=== PATIENT | male | born 1945 | race Hispanic/Latino ===

== ENCOUNTER 2018-01-04 19:43 | Observation (INO) | payer OTHER ==
[~2018-01-04] VITALS: Ht 165.1 cm; Wt 64.6 kg
[~2018-01-04 19:43] MED LIST: ASPI-555 PO; METO50TA18 PO; ROSU40 PO
[2018-01-04 20:07] LABS: BASOPHILS % (AUTO) 2.9 % (0.0-5.0); EOSINOPHILS % (AUTO) 0.9 % (0.0-8.0); HEMATOCRIT 43.7 % (42-54); LYMPHOCYTES % (AUTO) 26.8 % (21.0-51.0); MEAN CORPUSCULAR HEMOGLOBIN 31.9 pg (27.0-33.0); MEAN CORPUSCULAR HGB CONC 33.8 g/dL (32.0-36.0); MEAN CORPUSCULAR VOLUME 94.4 fL (79-99); MONOCYTES % (AUTO) 7.4 % (3.0-13.0); PLATELET COUNT (AUTO) 113 K/uL (130-400); RED BLOOD CELL COUNT(AUTO) 4.63 MIL/uL (4.50-6.20); RED CELL DISTRIBUTION WIDTH 14.5 % (11.0-15.5); WHITE BLOOD COUNT (AUTO) 7.3 K/uL (4.8-10.8)
[2018-01-04 20:19] LABS: POTASSIUM 4.1 mmol/L (3.5-5.1)
[2018-01-04 20:21] LABS: INR 0.95 (0.85-1.15); PARTIAL THROMBOPLASTIN TIME 25.9 SEC (26.3-35.5)
[2018-01-04] MEDS ORDERED: ASPIRIN 325 MG TABLET ONE (20:31)
[2018-01-04 20:35] LABS: ALBUMIN 3.6 g/dL (3.5-5.0); BILIRUBIN,TOTAL 0.4 mg/dL (0.2-1.0); CREATINE KINASE MB 0.9 ng/mL (0.5-3.6); TOTAL PROTEIN, SERUM 6.8 g/dL (6.0-8.3)
[2018-01-04] MEDS ORDERED: TRAMADOL HCL 50 MG TABLET ONE (22:41)
[2018-01-04] MEDS ORDERED: NITROGLYCERIN 1GM/1 INCH PACKET TD ONE (22:41)
[2018-01-04 23:01] LABS: APPEARANCE,URINE Clear (CLEAR); BILIRUBIN,URINE Negative (NEGATIVE); COLOR,URINE Yellow (YELLOW); GLUCOSE, URINE (UA) Negative (NEGATIVE); KETONES,URINE Negative (NEGATIVE); LEUKOCYTE ESTERASE ,URINE Negative (NEGATIVE); NITRATE,URINE Negative (NEGATIVE); OCCULT BLOOD,URINE Negative (NEGATIVE); PH,URINE 7.5 (5.0-8.0); PROTEIN,URINE Negative (NEGATIVE); UROBILINOGEN,URINE 0.2 mg/dL (0.2-1.0)
[2018-01-05] VITALS (7 sets, daily range): BP systolic 125–165; BP diastolic 64–78
[2018-01-05] MEDS ORDERED: LOSA25TA16 PO (01:14)
[2018-01-05] MEDS ORDERED: TRAMADOL HCL 50 MG TABLET PO PRN (01:45)
[2018-01-05] MEDS ORDERED: SODIUM CHLORIDE 0.9% 10 ML VIAL IVP PRN (01:45)
[2018-01-05 02:21] LABS: CREATINE KINASE MB 0.7 ng/mL (0.5-3.6); CREATINE KINASE, TOTAL 43 U/L (21-232); MYOGLOBIN 54 ng/mL (10-92); TROPONIN I < 0.04 ng/mL (0.00-0.06)
[2018-01-05] MEDS: NITROGLYCERIN 1GM/1 INCH PACKET TD SCH ×3 (05:52→20:56)
[2018-01-05 09:03] LABS: CREATINE KINASE MB 0.9 ng/mL (0.5-3.6); CREATINE KINASE, TOTAL 42 U/L (21-232); MYOGLOBIN 67 ng/mL (10-92); TROPONIN I < 0.04 ng/mL (0.00-0.06)
[2018-01-05] MEDS: PANTOPRAZOLE SODIUM 40 MG TABLET.DR PO SCH (09:24)
[2018-01-05] MEDS: ASPIRIN 325MG EC TAB 325 MG TABLET.DR PO SCH (09:24)
[2018-01-05] MEDS ORDERED: ZOLPIDEM TARTRATE 5 MG TAB PO PRN (23:00)
[2018-01-05] MEDS ORDERED: GUAIFENESIN-CODEINE 5 ML SYRUP PO PRN (23:00)
[2018-01-06 03:41] VITALS: BP 144/73
[2018-01-06] MEDS: NITROGLYCERIN 1GM/1 INCH PACKET TD SCH (06:19)
[2018-01-06 07:00] VITALS: BP 154/84
[2018-01-06] MEDS: PANTOPRAZOLE SODIUM 40 MG TABLET.DR PO SCH (08:59)
[2018-01-06] MEDS: ASPIRIN 325MG EC TAB 325 MG TABLET.DR PO SCH (08:59)
[2018-01-06 11:00] VITALS: BP 138/78
== END 2018-01-06 15:11 | disposition home or self-care (01) ==
LOC: EDH 19:43 → EDHIP 22:44 → 2DH 01-05 00:16
PROVIDERS: ADMIT Family Medicine; ATTEND Family Medicine
DX: R07.89 Other chest pain (principal); I25.10 Atherosclerotic heart disease of native coronary artery without angina pectoris; I10 Essential (primary) hypertension; E78.5 Hyperlipidemia, unspecified; Z95.1 Presence of aortocoronary bypass graft; Z95.5 Presence of coronary angioplasty implant and graft; Z79.899 Other long term (current) drug therapy
CPT/HCPCS: 36415 ×2; 71045; 80053; 81003; 82550 ×3; 82553 ×3; 83874 ×3; 84484 ×3; 85025; 85610; 85730; 93005; 99285; G0378 ×40

== ENCOUNTER → 2019-05-06 | Outpatient (CLI) | payer OTHER ==
[~2019-05-06] MED LIST changes: +LOSA25TA41 PO
== END | disposition home or self-care (01) ==
LOC: SHCH 12:43
PROVIDERS: ATTEND Internal Medicine Cardiovascular Disease
DX: I08.0 Rheumatic disorders of both mitral and aortic valves (principal); I65.23 Occlusion and stenosis of bilateral carotid arteries; R01.1 Cardiac murmur, unspecified
CPT/HCPCS: 93306; 93880

== ENCOUNTER 2019-06-02 06:07 | Day surgery (SDC) | payer OTHER ==
[2019-05-28 11:51] LABS: APPEARANCE,URINE Clear (CLEAR); BASOPHILS % (AUTO) 0.4 % (0.0-5.0); BILIRUBIN,URINE Negative (NEGATIVE); COLOR,URINE Yellow (YELLOW); EOSINOPHILS % (AUTO) 0.6 % (0.0-8.0); GLUCOSE, URINE (UA) Negative (NEGATIVE); HEMATOCRIT 43.3 % (42-54); KETONES,URINE Negative (NEGATIVE); LEUKOCYTE ESTERASE ,URINE Negative (NEGATIVE); LYMPHOCYTES % (AUTO) 30.6 % (21.0-51.0); MEAN CORPUSCULAR HEMOGLOBIN 30.5 pg (27.0-33.0); MEAN CORPUSCULAR HGB CONC 32.8 g/dL (32.0-36.0); MEAN CORPUSCULAR VOLUME 93.1 fL (79-99); MONOCYTES % (AUTO) 7.8 % (3.0-13.0); NEUTROPHILS % (AUTO) 60.4 % (40.0-77.0); NITRATE,URINE Negative (NEGATIVE); OCCULT BLOOD,URINE Negative (NEGATIVE); PH,URINE 5.5 (5.0-8.0); PLATELET COUNT (AUTO) 118 K/uL (130-400); PROTEIN,URINE Negative (NEGATIVE); RED BLOOD CELL COUNT(AUTO) 4.65 MIL/uL (4.50-6.20); RED CELL DISTRIBUTION WIDTH 13.2 % (11.0-15.5); UROBILINOGEN,URINE 0.2 mg/dL (0.2-1.0)
[2019-05-28 11:59] LABS: CREATININE 0.9 mg/dL (0.5-1.5); POTASSIUM 4.1 mmol/L (3.5-5.1)
[2019-05-28 12:01] LABS: INR 0.99 (0.85-1.15); PROTHROMBIN TIME 10.4 SEC (9.6-11.6)
[2019-05-28 12:27] VITALS: BP 154/71
--- NOTE | 2019-06-01 15:03 | NUR ---
labs abnormal PLT reported to cayetano VASQUEZ, NO further orders given , ok to proceed with planned procedure
[2019-06-02] VITALS (12 sets, daily range): BP systolic 106–155; BP diastolic 43–72
[~2019-06-02] VITALS: Ht 165.1 cm; Wt 66.7 kg
[~2019-06-02 06:07] MED LIST changes: +ACETAMINOPHEN 325 MG TAB PO PRN; +AEC81 PO; -ASPI-555 PO; +BACL10TA PO; +METO-408 PO; -METO50TA18 PO; +SODIUM CHLORIDE 0.9% 500ML 500 ML IV SCH
[2019-06-02] MEDS ORDERED: HEPARIN SODIUM 1000UNIT/ML 10ML VIAL ONE (07:50)
[2019-06-02] MEDS ORDERED: NITROGLYCERIN 1 MG/VIAL VIAL IV ONE (07:50)
[2019-06-02] MEDS ORDERED: SODIUM BICARB 50MEQ 50ML VIAL ONE (07:50)
[2019-06-02] MEDS ORDERED: LIDOCAINE HCL 2% 20ML ONE ×2 (07:51→09:19)
[2019-06-02] MEDS ORDERED: IOHEXOL 350 MG/ML 100ML INFUS..BTL IV ONE (07:51)
[2019-06-02] MEDS ORDERED: SODIUM CHLORIDE 0.9% 1000ML 1,000 ML IV ONE (08:20)
[2019-06-02] MEDS ORDERED: MIDAZOLAM HCL 1 MG/ML 2ML VIAL ONE (09:19)
[2019-06-02] MEDS ORDERED: MEPERIDINE-PF 25 MG/ML SYG ONE (09:19)
[2019-06-02] MEDS ORDERED: LABETALOL HCL 5 MG/ML 20ML VIAL IV ONE ×2 (09:52)
[2019-06-02] MEDS ORDERED: SODIUM CHLORIDE 0.9% 1000ML 1,000 ML IV SCH (10:23)
--- NOTE | 2019-06-02 12:30 | NUR ---
Dr. Lawrence in to see pt and family. Pt informed Dr. Lawrence that site was uncomfortable. Dr. Lawrence examined site. No evidence of any bleeding noted. Permission granted from Dr. Lawrence to give Tylenol.
--- NOTE | 2019-06-02 16:00 | NUR ---
Pt discharged home, tolerating solids/liquids well, ambulating well. Denies any severe pain, nausea or dizziness. Dressing to right groin remains dry, clean and intact, site soft s only small amount of tenderness. Pt and son instructed in routine and emergency care of right cath site. PT and son verbalized understanding. Pt and son report no further questions at this time. Pt informed that if necessary he could take another dose of Tylenol after 7.
== END 2019-06-02 16:00 | disposition home or self-care (01) ==
LOC: DAH 06:07
PROVIDERS: ATTEND Internal Medicine Cardiovascular Disease
DX: I25.10 Atherosclerotic heart disease of native coronary artery without angina pectoris (principal); I65.23 Occlusion and stenosis of bilateral carotid arteries; F41.9 Anxiety disorder, unspecified; F32.9 Major depressive disorder, single episode, unspecified; Z79.82 Long term (current) use of aspirin; Z79.899 Other long term (current) drug therapy; Z87.891 Personal history of nicotine dependence; Z95.1 Presence of aortocoronary bypass graft; Z82.49 Family history of ischemic heart disease and other diseases of the circulatory system; Z82.3 Family history of stroke
CPT/HCPCS: 36223; 36415; 71045; 80048; 81003; 85025; 85610; 85730; 93005; 93461; A4215; A4216; A4221; A4222; A4223 ×3; A4606; A4663; C1760; C1769 ×2; C1893; C1894 ×2; J1644 ×2; J2175; J2250; J3490 ×6; J7030; Q9965 ×2; Q9967; 99156; 99157

== ENCOUNTER 2019-08-12 14:24 | Emergency (ER) | payer OTHER ==
[~2019-08-12 14:24] MED LIST changes: -ACETAMINOPHEN 325 MG TAB PO PRN; -SODIUM CHLORIDE 0.9% 500ML 500 ML IV SCH
[2019-08-12 15:11] LABS: BASOPHILS % (AUTO) 0.4 % (0.0-5.0); EOSINOPHILS % (AUTO) 0.8 % (0.0-8.0); HEMATOCRIT 42.3 % (42-54); LYMPHOCYTES % (AUTO) 29.7 % (21.0-51.0); MEAN CORPUSCULAR HEMOGLOBIN 30.1 pg (27.0-33.0); MEAN CORPUSCULAR HGB CONC 33.1 g/dL (32.0-36.0); MONOCYTES % (AUTO) 7.8 % (3.0-13.0); NEUTROPHILS % (AUTO) 61.1 % (40.0-77.0); PLATELET COUNT (AUTO) 114 K/uL (130-400); RED BLOOD CELL COUNT(AUTO) 4.65 MIL/uL (4.50-6.20); RED CELL DISTRIBUTION WIDTH 13.1 % (11.0-15.5); WHITE BLOOD COUNT (AUTO) 4.7 K/uL (4.8-10.8)
[2019-08-12 15:25] LABS: CREATININE 1.1 mg/dL (0.5-1.5); POTASSIUM 4.1 mmol/L (3.5-5.1)
[2019-08-12 15:27] LABS: INR 0.93 (0.85-1.15); PARTIAL THROMBOPLASTIN TIME 27.3 SEC (26.3-35.5); PROTHROMBIN TIME 10.1 SEC (9.6-11.6)
[2019-08-12 15:30] LABS: ALBUMIN 3.9 g/dL (3.5-5.0); BILIRUBIN,TOTAL 0.5 mg/dL (0.2-1.0); TOTAL PROTEIN, SERUM 7.1 g/dL (6.0-8.3)
[2019-08-12] MEDS ORDERED: ASPIRIN 81MG TAB.CHEW ONE (16:15)
[2019-08-12] MEDS ORDERED: IOHEXOL-350 75 ML VIAL IV ONE (17:31)
== END 2019-08-12 19:02 | disposition home or self-care (01) ==
LOC: EDH 14:24
DX: R07.89 Other chest pain (principal); E78.5 Hyperlipidemia, unspecified; I10 Essential (primary) hypertension; I25.10 Atherosclerotic heart disease of native coronary artery without angina pectoris
CPT/HCPCS: 36415; 71045; 71275; 80053; 82550; 84484; 85025; 85378; 85610; 85730; 93005; 93970; 99285; Q9967

== ENCOUNTER → 2019-10-13 | Outpatient (CLI) | payer OTHER ==
[~2019-10-13] VITALS: Ht 165.1 cm; Wt 66.2 kg
[~2019-10-13] MED LIST changes: +SODIUM CHLORIDE 0.9% 500ML 500 ML IV SCH
[2019-10-13 12:28] LABS: BASOPHILS % (AUTO) 0.3 % (0.0-5.0); HEMATOCRIT 44.6 % (42-54); MEAN CORPUSCULAR HEMOGLOBIN 30.6 pg (27.0-33.0); MEAN CORPUSCULAR HGB CONC 32.5 g/dL (32.0-36.0); MEAN CORPUSCULAR VOLUME 94.1 fL (79-99); MONOCYTES % (AUTO) 8.3 % (3.0-13.0); NEUTROPHILS % (AUTO) 63.1 % (40.0-77.0); PLATELET COUNT (AUTO) 131 K/uL (130-400); RED BLOOD CELL COUNT(AUTO) 4.74 MIL/uL (4.50-6.20); RED CELL DISTRIBUTION WIDTH 13.1 % (11.0-15.5); WHITE BLOOD COUNT (AUTO) 6.7 K/uL (4.8-10.8)
[2019-10-13 12:41] LABS: INR 0.93 (0.85-1.15); PARTIAL THROMBOPLASTIN TIME 27.4 SEC (26.3-35.5); POTASSIUM 4.6 mmol/L (3.5-5.1); PROTHROMBIN TIME 10.1 SEC (9.6-11.6)
[2019-10-13 13:06] LABS: APPEARANCE,URINE Cloudy (CLEAR); BILIRUBIN,URINE Negative (NEGATIVE); COLOR,URINE Yellow (YELLOW); GLUCOSE, URINE (UA) Negative (NEGATIVE); KETONES,URINE Trace mg/dL (NEGATIVE); LEUKOCYTE ESTERASE ,URINE Negative (NEGATIVE); NITRATE,URINE Negative (NEGATIVE); OCCULT BLOOD,URINE Negative (NEGATIVE); PROTEIN,URINE POS 2+ mg/dL (NEGATIVE)
[2019-10-13 13:50] LABS: BACTERIA,URINE Few /HPF (None Seen); CALCIUM OXALATE CRYSTALS,UR Few /LPF (None Seen); MUCUS,URINE Few LPF (None Seen); RBC,URINE 0-1 /HPF (0-1); SQUAMOUS EPITHELIAL CELL,UR 0-2 /HPF (0-2)
--- NOTE | 2019-10-15 15:00 | NUR ---
TCAR CANCELED PATIENT WAS CALLED TO PERFORM PRE-OP INTERVIEW. PT C/O SEVERE LEFT EARACHE " MY EAR IS BLEEDING AND MY LEFT EYE IS SWOLLEN" ONSET YESTERDAY. I CALLED DR SHETTY AND NOTIFIED HIM OF PT'S EARACHE. TCAR IS NOW CANCELED PER DR SHETTY ORDERS. I CALLED BACK PATIENT AND LET HIM KNOW THAT PROCEDURE WILL BE POSTPONED FOR ANOTHER DAY. DR BURLESON NURSE ANGIE WAS NOTIFIED OF CANCELLATION. PT IS PRESENTLY TRYING TO SEE HIS FAMILY DOCTOR TO HAVE HIS EAR EXAMINED. THANK YOU
== END | disposition home or self-care (01) ==
LOC: DAH 10:00 → EDSTATUS 10:00
PROVIDERS: ATTEND Internal Medicine Cardiovascular Disease
DX: Z03.818 Encounter for observation for suspected exposure to other biological agents ruled out (principal); I65.23 Occlusion and stenosis of bilateral carotid arteries; Z95.1 Presence of aortocoronary bypass graft
CPT/HCPCS: 36415; 71045; 80048; 81001; 85025; 85610; 85730; 86850; 86900; 86901; 93005; U0003; J7040

== ENCOUNTER → 2023-05-15 | Outpatient (CLI) | payer OTHER ==
[~2023-05-15] MED LIST changes: -SODIUM CHLORIDE 0.9% 500ML 500 ML IV SCH
== END | disposition home or self-care (01) ==
LOC: RAH 13:15
PROVIDERS: ATTEND Family Medicine
DX: I08.0 Rheumatic disorders of both mitral and aortic valves (principal); R07.9 Chest pain, unspecified; I11.9 Hypertensive heart disease without heart failure; E78.5 Hyperlipidemia, unspecified
CPT/HCPCS: 93306

== ENCOUNTER → 2023-07-23 | Outpatient (CLI) | payer OTHER | END | disposition home or self-care (01) | LOC: RAH 08:56 | PROVIDERS: ATTEND Internal Medicine Cardiovascular Disease | DX: I82.C12 Acute embolism and thrombosis of left internal jugular vein (principal); I35.0 Nonrheumatic aortic (valve) stenosis; R06.00 Dyspnea, unspecified; R07.89 Other chest pain | CPT/HCPCS: 93971 ==

== ENCOUNTER → 2023-08-06 | Outpatient (CLI) | payer OTHER ==
[~2023-08-06] MED LIST changes: +IOHEXOL 350 MG/ML 100ML INFUS..BTL IV ONE
== END | disposition home or self-care (01) ==
LOC: RAH 07:59
PROVIDERS: ATTEND Internal Medicine Cardiovascular Disease
DX: I35.0 Nonrheumatic aortic (valve) stenosis (principal); R01.1 Cardiac murmur, unspecified; I73.9 Peripheral vascular disease, unspecified; I71.43 Infrarenal abdominal aortic aneurysm, without rupture; N40.0 Benign prostatic hyperplasia without lower urinary tract symptoms
CPT/HCPCS: 74174; 75574; Q9967

== ENCOUNTER 2024-02-11 14:11 | Emergency (ER) | payer OTHER ==
[~2024-02-11] VITALS: Ht 162.6 cm; Wt 68.0 kg
[~2024-02-11 14:11] MED LIST changes: -HYDR28.32 TP
[2024-02-11 14:12] VITALS: BP 160/61; PULSE 65; RESP 14; TEMP 97.7
[2024-02-11] MEDS ORDERED: HYDR28.32 TP (15:13)
== END 2024-02-11 15:31 | disposition home or self-care (01) ==
LOC: EDH 14:11
DX: L29.9 Pruritus, unspecified (principal); E78.00 Pure hypercholesterolemia, unspecified; I10 Essential (primary) hypertension; Z79.02 Long term (current) use of antithrombotics/antiplatelets; Z79.82 Long term (current) use of aspirin; Z79.899 Other long term (current) drug therapy; Z95.1 Presence of aortocoronary bypass graft
CPT/HCPCS: 74230; 92611; 99282

== ENCOUNTER → 2024-02-11 | Outpatient (CLI) | payer OTHER ==
[~2024-02-11] MED LIST changes: +AMLO5TAB4 PO; +ATOR-2 PO; -BACL10TA PO; +CLOP75TA32 PO; +HYDR28.32 TP; -IOHEXOL 350 MG/ML 100ML INFUS..BTL IV ONE; -LOSA25TA41 PO; +PANT40TA PO; +QUET50TA24 PO; -ROSU40 PO; +TAMS-1 PO
== END | disposition home or self-care (01) ==
LOC: RAH 12:18
PROVIDERS: ATTEND Internal Medicine Gastroenterology
DX: R13.10 Dysphagia, unspecified (principal); R63.39 Other feeding difficulties
CPT/HCPCS: 74230; 92611

== ENCOUNTER → 2024-09-10 | Outpatient (CLI) | payer OTHER ==
[~2024-09-10] MED LIST changes: -AEC81 PO; -AMLO5TAB4 PO; +APIX5TAB PO; -ATOR-2 PO; +EZET10TA48 PO; +LOSA25TA41 PO; +LUBI8CAP5 PO; -PANT40TA PO; +ROSU40TA88 PO; -TAMS-1 PO; +TAMS-55 PO
[2024-09-10] MEDS: REGADENOSON 0.4 MG/5 ML PF SYG IVP ONE (15:43)
--- NOTE | 2024-09-11 09:50 | HMCSR ---
APPROVED REPORT Height: 5 ft 5in Weight: 137 lbs TEST INDICATIONS CAD The imaging protocol used to acquire images was Rest Tc-99m/stress Tc-99m 1 day Consent: The procedure was explained and understood by the patient. Informerd consent was witnessed Carol Isabel RN First, low dose rest was performed then high dose stress. RESTING DATA: The resting ekg shows: NSR Rest SPECT myocardial perfusion imaging was performed in supine position 61 minutes following the int ravenous injection of 10.3 mCi of Tc-99 Sestamibi. Time of rest injection: 09:19: Date: 09/10/2024 Time of rest imagin:20: Date: 09/10/2024 PHARMACOLOGIC STRESS: Pharmacologic stress test was performed by injecting regadenoson 0.4 mg IV push followed by the intra venous injection of 31.1 mCi of Tc-99 Sestamibi. Time of stress injection: 10:46: Date: 09/10/2024 Time of stress imagin:56: Date: 09/10/2024 Heart Rate at time of stress injection: 65 bpm. Gated Stress SPECT was performed 70 minutes after stress injection. The images were gated to evaluate regional wall motion and calculate left ventricular ejection fracti on. STRESS DETAILS Reason for Termination: Infusion complete Stress Symptoms: Headache, Stomach pain Max HR Achieved: 91 bpm % of APMHR Achieved: 65 Max Blood Pressure: 148/58 mmHg Stress ECG: NSR LEFT VENTRICLE Size: The left ventricular size is normal. Systolic Function:The left ventricular systolic function is mildly decreased. Wall Motion: Inferior hypokinesis. The left ventricular ejection fraction was calculated to be 50%.TID = . LV PERFUSION Reversible miguelina-apical and septal defects. Fixed inferior wall defect. Conclusion The left ventricular size is normal. The left ventricular systolic function is mildly decreased. Reversible miguelina-apical and septal defects. Fixed inferior wall defect. The left ventricular ejection fraction was calculated to be 50%.
== END | disposition home or self-care (01) ==
LOC: SHCH 08:45
PROVIDERS: ATTEND Internal Medicine Cardiovascular Disease
DX: I25.10 Atherosclerotic heart disease of native coronary artery without angina pectoris (principal); R51.9 Headache, unspecified; R10.9 Unspecified abdominal pain
CPT/HCPCS: 78452; 93017; J2785; A9500 ×2